=== PATIENT | female | born 1985 | race Caucasian/White ===

== ENCOUNTER 2016-09-21 16:58 | Emergency (ER) | payer BC ==
[2016-09-21 17:26] LABS: BASOPHIL# 0.1 X10e3 (0-0.3); BASOPHIL% 0.7 % (0-2.5); EOSINOPHIL# 0.5 X10e3 (0-0.7); EOSINOPHIL% 6.2 % (0.0-7.0); HEMATOCRIT 41.4 % (35.0-45.0); HEMOGLOBIN 13.7 gm/dL (12.0-16.0); LYMPHOCYTE% 13.1 % (17.0-45.0); MEAN CELL VOLUME 89.3 FL (83-96); MEAN CORPUSCULAR HEMOGLOBIN 29.5 PG (28-34); MEAN CORPUSCULAR HGB CONC 33.1 g/dL (30-36); MEAN PLATELET VOLUME 8.4 FL (6.5-11.5); MONOCYTE# 0.7 X10e3 (0-1.0); MONOCYTE% 9.1 % (3.0-12.0); NEUTROPHIL# 5.4 X10e3 (1.5-7.1); NEUTROPHIL% 70.9 % (40-75); PLATELET COUNT 208 X10e3 (140-420); RED BLOOD COUNT 4.63 X10e (3.90-5.30); RED CELL DISTRIBUTION WIDTH 12.7 % (11.0-15.5); WHITE BLOOD COUNT 7.6 X10e3 (4.0-10.5)
[2016-09-21 17:29] LABS: DIFF IND NO
[2016-09-21 17:44] LABS: ALBUMIN SERUM 4.2 g/dL (3.5-5.0); BILIRUBIN,TOTAL 0.3 mg/dL (0.2-2.0); BUN/CREATININE RATIO 13.33; CALCIUM SERUM 8.9 mg/dL (8.4-10.2); CREATININE SERUM 0.6 mg/dL (0.6-1.4); GLOM FILT RATE Estimated 120.6 mL/min (>60); POTASSIUM 3.3 mmol/L (3.5-5.1); PROTEIN TOTAL SERUM 7.7 g/dL (6.0-8.3)
[2016-09-21 17:52] LABS: URINE SOURCE CLEAN CATCH
[2016-09-21 17:57] LABS: URINE APPEARANCE CLEAR; URINE BILIRUBIN NEG (NEG); URINE BLOOD 1+ (NEG); URINE COLOR YELLOW; URINE GLUCOSE NEG (NORM); URINE KETONE NEG (NEG); URINE LEUKOCYTE ESTERASE TRACE (NEG); URINE NITRATE NEG (NEG); URINE PROTEIN NEG (NEG); URINE UROBILINOGEN 0.2 MG/DL (NORM)
[2016-09-21 17:58] LABS: MICRO INDICATED? YES
[2016-09-21 18:12] LABS: CULTURE INDICATED? YES; URINE BACTERIA NEG (NEG); URINE MUCUS PRESENT; URINE SQUAMOUS EPITHELIAL CELL MANY /[HPF]; URINE TRANSITIONAL EPI CELLS N /[HPF]
[2016-09-23 21:00] LABS: CHLAMYDIA TRACH Not Detected (Not Detected); N GONOR Not Detected (Not Detected)
== END 2016-09-21 20:34 | disposition home or self-care (01) ==
LOC: SED 16:58
PROVIDERS: Emergency Medicine; Nurse Practitioner
DX: N39.0 Urinary tract infection, site not specified (principal)
CPT/HCPCS: 80053; 81003; 84703; 85025; 87086; 87210; 87491; 87591; 87808; 87905; 99284

== ENCOUNTER 2016-09-22 12:44 | Emergency (ER) | payer BC ==
--- NOTE | ~2016-09-22 | CT2 ---
[facility] A Service of [facility] RADIOLOGY TEXT RESULTS PATIENT: SOHAM COBB LOCATION: [facility] : 83 UNIT #: [id number] AGE: [address]: Namita Jerome APRN SEX: F ORDER DR: [id number] [facility]. [place], [place] [address] [id number] E MR#: [id number] Acc #: [id number] NAME: SOHAM COBB : 1985 SEX: F STUDY DATE/TIME: 09/22/2016 14:59 UNIT: [facility]FT[facility] ROOM: STUDY DESCRIPTION: CT Abd and Pelv W Cont Attending Physician: Namita Jerome A.P.R.N. MEDICAL IMAGING REPORT This report is preliminary unless electronic signature is present EXAM CT of the abdomen and pelvis with contrast HISTORY Fever since 09/17, bilateral abdomen pain as well TECHNIQUE Axial 5 mm images were obtained through the abdomen and pelvis. The patient was given 100 mL of Isovue 370 and oral contrast was also administered. This CT exam was performed with one or more of the following radiation dose reduction techniques: automatic exposure control, adjustment of mA and/or kV according to patient size, and iterative reconstruction. FINDINGS The lung bases are clear. The liver, gallbladder, spleen, pancreas, adrenal glands and kidneys are normal in appearance. The aorta is normal in size and there is no adenopathy. The bowel appears normal. The uterus is normal. The left ovary is normal. The right ovary does have a cyst measuring 2.3 cm in diameter. There is a small amount of free fluid in the cul-de-sac. The bladder is normal. The bones are unremarkable. IMPRESSION 1. Small amount of free fluid in the cul-de-sac. 2. 2.1 cm right ovarian cyst. 3. Otherwise normal. Dictated by... Weston Santana M.D. [facility] A Service of [facility] RADIOLOGY TEXT RESULTS PATIENT: SOHAM COBB LOCATION: [place] : 84 UNIT #: [id number] AGE: [address]: Namita Jerome APRN SEX: F ORDER DR: THIS IS AN ELECTRONICALLY VERIFIED REPORT Weston Santana M.D. at 09/23/2016 3:55 PM FEL/to TD: 09/22/2016 17:44 JOB #: [id number] MEDICAL IMAGING REPORT Page 1 of 1 COPY
[2016-09-22 12:30] LABS: URINE SOURCE CLEAN CATCH
[2016-09-22 12:40] LABS: URINE APPEARANCE CLEAR; URINE BILIRUBIN NEG (NEG); URINE BLOOD TRACE (NEG); URINE COLOR DK YELLOW; URINE GLUCOSE NEG (NEG); URINE KETONE TRACE (NEG); URINE LEUKOCYTE ESTERASE NEG (NEG); URINE NITRATE NEG (NEG); URINE PH 7.5 (5-8); URINE PROTEIN NEG (NEG); URINE SPECIFIC GRAVITY 1.013 (1.003-1.035); URINE UROBILINOGEN 0.2 MG/DL (NEG)
[2016-09-22 12:44] LABS: CULTURE INDICATED? YES; URINE BACTERIA AUWI 1+ (NEGATIVE); URINE SQUAMOUS EPITHELIAL CELL OCC /[HPF]
[2016-09-22 13:34] LABS: BASOPHIL% 0.3 % (0-2.5); EOSINOPHIL# 0.3 X10e3 (0-0.7); EOSINOPHIL% 3.8 % (0.0-7.0); HEMATOCRIT 42.5 % (35.0-45.0); LYMPHOCYTE# 0.6 X10e3 (1.0-3.5); LYMPHOCYTE% 6.6 % (17.0-45.0); MEAN CELL VOLUME 89.1 FL (83-96); MEAN CORPUSCULAR HEMOGLOBIN 29.3 PG (28-34); MEAN CORPUSCULAR HGB CONC 32.9 g/dL (30-36); MEAN PLATELET VOLUME 9.5 FL (6.5-11.5); MONOCYTE# 0.6 X10e3 (0-1.0); MONOCYTE% 6.8 % (3.0-12.0); NEUTROPHIL# 6.9 X10e3 (1.5-7.1); NEUTROPHIL% 82.5 % (40-75); PLATELET COUNT 176 X10e3 (140-420); RED BLOOD COUNT 4.77 X10e (3.90-5.30); RED CELL DISTRIBUTION WIDTH 12.8 % (11.0-15.5); WHITE BLOOD COUNT 8.4 X10e3 (4.0-10.5)
[2016-09-22 13:45] LABS: DIFF IND NO
[2016-09-22 14:00] LABS: ALBUMIN SERUM 4.4 g/dL (3.5-5.0); BILIRUBIN,TOTAL 0.5 mg/dL (0.2-2.0); CALCIUM SERUM 9.1 mg/dL (8.4-10.2); CREATININE SERUM 0.5 mg/dL (0.6-1.4); GLOM FILT RATE Estimated 128.1 mL/min (>60); POTASSIUM 3.4 mmol/L (3.5-5.1); PROTEIN TOTAL SERUM 7.8 g/dL (6.0-8.3)
== END 2016-09-22 16:04 | disposition home or self-care (01) ==
LOC: CFTX 12:44
PROVIDERS: Nurse Practitioner
DX: N83.201 Unspecified ovarian cyst, right side (principal); Z88.0 Allergy status to penicillin; Z88.2 Allergy status to sulfonamides; Z88.5 Allergy status to narcotic agent
CPT/HCPCS: 36415; 74177; 80053; 81003; 84703; 85025; 87086; 96374; 96375; 99284; J1885; J2405; Q9967

== ENCOUNTER → 2016-10-01 | Outpatient (CLI) | payer BC ==
--- NOTE | ~2016-10-01 | CT4 ---
[facility] A Service of [facility] RADIOLOGY TEXT RESULTS PATIENT: SOHAM COBB LOCATION: [facility] : 84 UNIT #: [id number] AGE: [address]: Delma Mason MD SEX: F ORDER DR: [id number] [place] [id number] O MR#: [id number] Acc #: [id number] NAME: SOHAM COBB : 1985 SEX: F STUDY DATE/TIME: 10/01/2016 11:08 UNIT: [facility] ROOM: STUDY DESCRIPTION: CT Abd and Pelv Wo Cont Attending Physician: Delma Mason M.D. Referring Physician: Delma Mason M.D. Ordering Physician: Delma Mason M.D. Primary Care Physician: Delma Mason M.D. MEDICAL IMAGING REPORT This report is preliminary unless electronic signature is present. EXAM CT abdomen and pelvis. INDICATIONS Back pain. Hematuria. Bilateral flank pain intermittent for [address] abdomen and pelvis without contrast. Coronal and sagittal reconstructions were obtained. This CT exam was performed with one or more of the following radiation dose reduction techniques: automatic exposure control, adjustment of mA and/or kV according to patient size, and iterative reconstruction. COMPARISON CT abdomen and pelvis dated 09/22/2016. FINDINGS ABDOMEN: No urinary calculi. No hydronephrosis. Remaining solid abdominal organs are within normal limits on this noncontrasted study. Gallbladder is not distended. The bowel is not dilated. The appendix is filled with contrast. No appendicitis. The abdominal aorta is normal in caliber. No enlarged retroperitoneal or mesenteric lymph nodes. PELVIS: No pelvic mass. There is a some small amount of free pelvic fluid. There are a few ovarian cysts. Bladder is unremarkable. No enlarged pelvic or inguinal lymph nodes. No acute osseous abnormalities. IMPRESSION [facility] A Service of [facility] RADIOLOGY TEXT RESULTS PATIENT: SOHAM COBB LOCATION: [facility] : 84 UNIT #: [id number] AGE: [address]: Delma Mason MD SEX: F ORDER DR: 1. Small volume of free fluid in the pelvis is likely physiologic. 2. No new findings to account for the patient's symptoms. 3. No urinary calculi. Dictated by... Ankur Cosat M.D. THIS IS AN ELECTRONICALLY VERIFIED REPORT Ankur Costa M.D. at 10/02/2016 8:03 AM NANCY/emma TD: 10/01/2016 16:32 JOB #: [id number] MEDICAL IMAGING REPORT Page 1 of 1
== END | disposition home or self-care (01) ==
LOC: SCT 11:00
DX: R31.9 Hematuria, unspecified (principal); M54.9 Dorsalgia, unspecified; R10.9 Unspecified abdominal pain
CPT/HCPCS: 74176